=== PATIENT | female | born 1985 | race Caucasian/White ===

== ENCOUNTER → 2020-04-26 | Outpatient (CLI) | payer BC ==
[~2020-04-26] MED LIST: CEPHALEXIN500 M1 PO; DHA PO; MULTIPLE VITAMI1 CAP PO; OYSTER CALCIUM500 M1 PO; PRENATAL VITAMI1 TA5 PO
== END ==
LOC: ZCOL.LAB 17:18
DX: R51 Headache (principal); Z20.828 Contact with and (suspected) exposure to other viral communicable diseases